=== PATIENT | female | born 1995 | race Asian ===

== ENCOUNTER 2024-08-04 07:51 | Emergency (ER) | payer MEDICAID, SELFPAY ==
[2024-08-04 07:52] VITALS: BMI 23.4
[2024-08-04 08:32] VITALS: BP 127/77; PULSE 88; RESP 16; TEMP 36.7; O2SAT 99; BMI 23.3
--- NOTE | 2024-08-04 08:34 | XR_ITS ---
Examination: Complete OB ultrasound, less than 14 weeks, transabdominal Date and time of exam: August 04, 2024 0914 hours INDICATIONS: Onset vaginal bleeding today Technique: Obstetrical ultrasound images less than 14 weeks performed via transabdominal imaging Findings: Uterus 7.7 x 3.2 x 4.9 cm No intrauterine gestation Free fluid in the cervix Endometrial stripe 0.3 cm Right ovary 2.5 cm arterial flow Left ovary 2.8 cm arterial flow IMPRESSION: Mild free fluid in the cervix No uterine mass or intrauterine gestation
--- NOTE | 2024-08-04 08:35 | PD.EDRME ---
Rapid Medical Screening Exam RME Arrival date/time: 08/04/24 07:51 29-year-old female presents to the emergency department with complaints of a near syncopal episode patient reports she was having an episode of nausea due to -induced This a.m. when she felt dizzy slightly after and helping herself down to the floor. I have greeted and performed a focused initial assessment of this patient. Initial appropriate labs ordered at this time. A comprehensive ED assessment and evaluation of the patient and analysis of all test and completion of medical decision making process will be conducted by additional ED provider. Chief Complaint: Syncope / Near Syncope Time Seen by Provider: 08/04/24 08:10 Vital signs: Vital Signs Temperature 98.1 F 08/04/24 08:32 Pulse Rate 88 08/04/24 08:32 Respiratory Rate 16 08/04/24 08:32 Blood Pressure 127/77 08/04/24 08:32 Pulse Oximetry (%) 99 08/04/24 08:32 Oxygen Delivery Method Room Air 08/04/24 08:32
[2024-08-04] MEDS: ONDANSETRON ODT 4 MG TABRAP PO (08:57)
[2024-08-04 09:00] LABS: Basophils % (Auto) 0 % (0-2.5); Eosinophils # (Auto) 0.1 Thou/mm3 (0.0-0.5); Eosinophils % (Auto) 1 % (0-10); Hematocrit 35.8 % (36.0-46.0); Hemoglobin 13.3 g/dL (12.0-16.0); Immature Granulocytes % (Auto) 1 % (0-0); Immature Granulocytes Auto 0.05 Thou/mm3 (0.00-0.00); Lymphocytes # (Auto) 1.2 Thou/mm3 (1.0-4.8); Lymphocytes % (Auto) 11 % (10-50); Mean Corpuscular HGB Conc 37.2 g/dl (31.0-37.0); Mean Corpuscular Hemoglobin 30.6 pg (25.0-35.0); Mean Corpuscular Volume 82 fL (80-100); Monocytes # (Auto) 0.5 Thou/mm3 (0.0-0.8); Monocytes % (Auto) 4 % (0-12); Neutrophils # (Auto) 8.9 Thou/mm3 (1.8-7.7); Neutrophils % (Auto) 83 % (37-80); Nucleated Red Blood Cell % 0 /100 WBC (0); Platelet Count 268 Thou/mm3 (140-440); RDW Standard Deviation 43.4 fL (36.4-46.3); Red Blood Count 4.35 Miln/mm3 (4.00-5.20); White Blood Count 10.7 Thou/mm3 (3.6-11.0)
[2024-08-04 09:16] LABS: Collection Type, Urine Clean Catch
[2024-08-04 09:25] LABS: Bilirubin,Urine Negative (Negative); Blood,Urine 2+ (Negative); Clarity,Urine Clear (Clear/Hazy); Color,Urine Lt-Yellow (Lt Yel-Yel); Glucose, Urine Negative (Negative); Ketones,Urine Negative (Negative); Leukocyte Esterase,Urine Negative (Negative); Nitrite,Urine Negative (Negative); Protein,Urine Negative (Neg - Trace); RBC,Urine 1 /hpf (0-3); Specific Gravity,Urine 1.016 (1.001-1.035); Squamous Epithelial Cell,Urine 3 /hpf (0-5); Urobilinogen,Urine Negative mg/dL (0.0-1.0); WBC,Urine 1 /hpf (0-5)
[2024-08-04 09:27] LABS: Alanine Aminotransferase 15 U/L (10-49); Albumin, Serum 4.8 gm/dL (3.5-5.0); Albumin/Globulin Ratio 1.5 (1.2-2.2); Alkaline Phosphatase 54 U/L (46-116); Anion Gap 9 (7-16); Aspartate Amino Transferase 15 U/L (0-34); BUN/Creatinine Ratio 19 Ratio (12-20); Beta HCG,Quantitative 24 mIU/mL (<5.0); Bilirubin,Total 0.6 mg/dL (0.3-1.2); Blood Urea Nitrogen 15 mg/dL (9-23); Calcium 9.5 mg/dL (8.3-10.6); Calcium (Corrected) 9.5 mg/dL (8.5-10.1); Carbon Dioxide 23.6 mMol/L (20.0-31.0); Chloride 105 mMol/L (98-107); Creatinine (Component) 0.8 mg/dL (0.6-1.3); Estimated Creatinine Clearance 75.2 mL/min (>60); Globulin 3.2 gm/dL (2.3-3.5); Glucose 93 mg/dL (74-106); Osmolality,Calculated 276 (275-295); Potassium 3.7 mMol/L (3.4-5.1); Sodium 138 mMol/L (136-145); eGFR > 60 See Note
[2024-08-04 12:55] VITALS: BP 97/66; PULSE 80; RESP 16; TEMP 37.2; O2SAT 99
--- NOTE | 2024-08-04 13:33 | PD.EDVAGBL ---
ED OB Contraction Preg RMI/HPI General Chief complaint: Syncope / Near Syncope Stated complaint: SYNCOPAL EPISODE () Time Seen by Provider: 08/04/24 08:10 Source: patient Arrival date/time: 08/04/24 07:51 29-year-old female presents to the emergency department with complaints of a near syncopal episode patient reports she was having an episode of nausea due to -induced This a.m. when she felt dizzy slightly after and helping herself down to the floor. Does report she is having some mild spotting and abdominal cramping. RME / HPI RME / HPI Narrative: 08/04/24 07:51 29-year-old female presents to the emergency department with complaints of a near syncopal episode patient reports she was having an episode of nausea due to -induced This a.m. when she felt dizzy slightly after and helping herself down to the floor. I have greeted and performed a focused initial assessment of this patient. Initial appropriate labs ordered at this time. A comprehensive ED assessment and evaluation of the patient and analysis of all test and completion of medical decision making process will be conducted by additional ED provider. Related Data Previous Rx's ?Medication ?Instructions ?Recorded ondansetron 4 mg disintegrating 4 mg PO Q8H PRN nausea and 04/17/19 tablet vomiting #5 tabs clobetasol 0.05 % topical cream 1 applic topical QDAY #15 grams 11/16/22 hydrocortisone 2.5 % topical cream 1 applic topical BID PRN rash #20 11/16/22 grams hydroxyzine HCl 50 mg tablet 50 mg PO BID PRN itching #20 tabs 11/16/22 prednisone 5 mg tablets in a dose 5 mg PO QDAY #21 tabs 11/16/22 pack Allergies Allergy/AdvReac Type Severity Reaction Status Date / Time peanut Allergy Intermediate Hives Verified 08/04/24 07:54 diphenhydramine (From Allergy Difficulty Verified 08/04/24 07:54 Benadryl Allergy) Breathing Review of Systems Review of Systems Systems Reviewed: All systems reviewed, normal except as documented Narrative Review of Systems: Gen: No fever, no chills, no weight loss, + dizziness EYES: No discharge, no visual changes, no pain HEENT: No ear pain, no congestion, no sore throat PULM: No shortness of breath, no cough, no congestion CV: No chest pain, no dyspnea on exertion, no palpitations GI: No nausea, no vomiting, no diarrhea, + abdominal cramping pain, no constipation : No frequency, no urgency,? no dysuria, + vaginal bleeding Musc/skel: No joint pain, no back pain Skin: No rash? Psyc: No hallucinations, no depression Heme/Lymph: No easy bleeding or bruising tendencies Neuro: No weakness, no headache ED Exam Narrative Physical exam: General: Sittiing in Exam table in no acute distress, answering questions appropriately HENT: normocephalic, atraumatic, EOMI, PERRLA, moist mucous membranes Chest: chest wall is nontender Cardiac: regular rate and rhythm, normal S1 and S2, no murmurs, rubs, or gallops, capillary refill ?2 seconds Pulmonary: clear to auscultation bilaterally, no wheezing, crackles, or rhonchi Abdominal: active bowel sounds, soft, nontender, nondistended Neuro: A&OX3, CN II-XII intact, sensation grossly intact bilaterally in UE and LE. Skin: no rashes, no ecchymosis Ext: no lower extremity edema Course Quality Measures none Orders Category Date Time Status US OB <= 14 weeks fetus Stat Exams 08/04/24 08:34 Completed ABO/RH Type Stat Lab 08/04/24 08:45 Completed Beta HCG,Quantitative Stat Lab 08/04/24 08:45 Completed CBC Stat Lab 08/04/24 08:45 Completed Comprehensive Metabolic Panel Stat Lab 08/04/24 08:45 Completed Urinalysis Stat Lab 08/04/24 09:06 Completed Urine Culture Stat Lab 08/04/24 09:06 Completed Ondansetron Odt [Zofran Odt] Med 08/04/24 08:34 Discontinued 4 mg PO X1 ONE Vital Signs Vital signs: Vital Signs Temperature 98.1 F 08/04/24 08:32 Pulse Rate 88 08/04/24 08:32 Respiratory Rate 16 08/04/24 08:32 Blood Pressure 127/77 08/04/24 08:32 Pulse Oximetry (%) 99 08/04/24 08:32 Oxygen Delivery Method Room Air 08/04/24 08:32 Vaginal Bleeding MDM Narrative MDM Narrative: 29-year-old female evaluated emergency department for complaints of near syncopal episode during her induced nausea. She does report she has a couple weeks . And has started to spot this a.m. Patient's vital signs stable patient is awake and alert. Labs are reassuring. hCG is below 24. Urine negative for pyuria. Rh+. Ultrasound does not demonstrate an IUP. Spoke with patient in great detail advised that most likely she has an ongoing miscarriage. Advised to follow-up with her OB for follow-up care. Strict ER precautions given Patient data External records reviewed:: [facility] previous records Clinical information provided by:: patient Social determinants that could affect healthcare access:: none Patient has the following chronic illnesses:: none How is presenting disease/condition affected by chronic disease/condition?: no chronic disease Evaluation data The following diagnostics were reviewed and interpreted by me:: radiology exam(s) Lab and/or radiology exams considered but not ordered:: none Interpretation Summary: Examination: Complete OB ultrasound, less than 14 weeks, transabdominal Date and time of exam: August 04, 2024 0914 hours INDICATIONS: Onset vaginal bleeding today Technique: Obstetrical ultrasound images less than 14 weeks performed via transabdominal imaging Findings: Uterus 7.7 x 3.2 x 4.9 cm No intrauterine gestation Free fluid in the cervix Endometrial stripe 0.3 cm Right ovary 2.5 cm arterial flow Left ovary 2.8 cm arterial flow IMPRESSION: Mild free fluid in the cervix No uterine mass or intrauterine gestation Medications / Prescriptions Medications or Prescriptions considered but not ordered:: none Medication administrations:: Medication Administration History Discontinued Medications Ondansetron HCl (Ondansetron Odt 4 Mg Tabrap) 4 mg PO X1 ONE; Protocol Stop: 08/04/24 08:35 Last Admin: 08/04/24 08:57 Dose: 4 mg Documented By: ED All medication administered and effective Consultations Consultation(s) initiated? (list below): No Diagnosis Vaginal Bleeding Differential Diagnosis: missed , threatened , menometrorrhagia, incomplete and vaginal bleeding Most likely diagnosis given after review of the tests above:: Threatened , near syncopal episode Admission Indicated Admission indicated?: not indicated Admission Request Was there a request for admission?: No Disposition Plan Disposition Plan: Discharge Discharge Attestation Discharge Attestation: The patient and all family members were given an opportunity to ask questions and understood the discharge instructions. Discharge instructions specifically effects, indications for sooner follow up or return to the emergency department, and the expected course of current diagnosis. Patient condition: Stable Discharge Plan Plan Patient Disposition: HOME (Self Care) Prescriptions/Referrals Prescriptions/Med Rec: No Action ondansetron 4 mg tablet,disintegrating 4 mg PO Q8H PRN (Reason: nausea and vomiting) Qty: 5 0RF clobetasol 0.05 % cream 1 applic topical QDAY Qty: 15 0RF hydrocortisone 2.5 % cream 1 applic topical BID PRN (Reason: rash) Qty: 20 0RF hydroxyzine HCl 50 mg tablet 50 mg PO BID PRN (Reason: itching) Qty: 20 0RF prednisone 5 mg tablets,dose pack 5 mg PO QDAY Qty: 21 0RF Referrals: No Primary/Family,Physician [Primary Care Provider] - In 1 week Problem List Clinical Impression: Threatened Patient/Caregiver Discharge Instructions Discharge Activity: activity as tolerated Education Materials: ED Possible Miscarriage ... Additional Instructions: Your ultrasound does not demonstrate a positive . Your hCG which is your hormone is positive at 24 You will need to have that number repeated to review if it is increasing. Can do this at your doctor's office or return here for reevaluation. In 3 to 4 days. You can return to the emergency department this any worsening symptoms any condition. Print Language: [place] Stand Alone Forms: [employer] Award Info., Patient Portal Info Letter REGINE/MATY Supervising Physician REGINE/MATY Supervising Physician: Dr Ruelas
== END 2024-08-04 14:56 | disposition home or self-care (01) ==
PROVIDERS: Nurse Practitioner Primary Care; Emergency Provider Emergency Medicine
DX: O20.0 Threatened abortion (principal); Z3A.00 Weeks of gestation of pregnancy not specified
CPT/HCPCS: 36415; 76801; 80053; 81001; 84702; 85025; 86900; 86901; 87086; 99284; Q0162